=== PATIENT | female | born 1955 | race Caucasian/White ===

== ENCOUNTER 2019-09-14 09:58 | Inpatient (IN) ==
[~2019-09-14 09:58] MED LIST: Bacitracin 50,000 UNIT, Polymyxin B Sulfate 500,000 UNIT, Sodium Chloride IRRigation 1,... IR ONE
[2019-09-14] MEDS ORDERED: CeFAZolin Syr 2,000MG/20 ML 2,000 MG/20 ML SYRINGE IVPB ONE (10:17)
[2019-09-14] MEDS ORDERED: *HR* Midazolam HCl 2 MG/2 ML VIAL ONE (10:26)
[2019-09-14] MEDS ORDERED: Dexamethasone 4 MG/ML VIAL ONE (10:27)
[2019-09-14] MEDS ORDERED: Neostigmine Methylsulfate 3 MG/3 ML SYRINGE ONE (10:27)
[2019-09-14] MEDS ORDERED: Lidocaine -MPF 2% 2 ML VIAL ONE (10:27)
[2019-09-14] MEDS ORDERED: *HR* Propofol 200 MG/20 ML VIAL IVP ONE (10:27)
[2019-09-14] MEDS ORDERED: *HR* Rocuronium Bromide 50 MG/5 ML VIAL ONE (10:27)
[2019-09-14] MEDS ORDERED: Ondansetron 4 MG/2 ML VIAL ONE (10:27)
[2019-09-14] MEDS ORDERED: Lidocaine HCL 4 ML Topical Solution (Laryng-O-Jet Kit Sterile Pak) TP ONE (10:28)
[2019-09-14] MEDS ORDERED: Ringers Solution, Lactated 1,000 ML IVC SCH ×2 (10:30→17:38)
[2019-09-14] MEDS ORDERED: *HR* Remifentanil 1 MG VIAL IVP ONE ×3 (10:38→12:48)
[2019-09-14] MEDS ORDERED: *HR* HYDROmorphone (PF) 1 MG/ML SYRINGE IVP PRN (10:55)
[2019-09-14] MEDS ORDERED: *HR* Promethazine 25 MG/ML VIAL IVP PRN (10:55)
[2019-09-14] MEDS ORDERED: *HR* OxyCODONE Immed Rel 5 MG TABLET PO PRN ×2 (10:55→17:38)
[2019-09-14] MEDS ORDERED: Ondansetron 4 MG/2 ML VIAL IVP ONE (10:55)
[2019-09-14] MEDS ORDERED: Acetaminophen IV 1,000 MG/100 ML INFUS..BTL IVPB ONE (10:55)
[2019-09-14] MEDS ORDERED: Famotidine 20 MG/2 ML VIAL IVP ONE (10:55)
[2019-09-14] MEDS ORDERED: Gabapentin 300 MG CAPSULE PO ONE (10:55)
[2019-09-14] MEDS ORDERED: *HR* Labetalol 20 MG/4 ML SYRINGE IVP PRN (10:55)
[2019-09-14] MEDS ORDERED: Albuterol 2.5 MG/3 ML NEBULIZER IH PRN (10:55)
[2019-09-14] MEDS ORDERED: EPHEDrine 50 MG/ML VIAL ONE (13:05)
[2019-09-14] MEDS ORDERED: *HR* PHENYLEPHRINE 1,000 MCG/10 ML SYRINGE IVP ONE (13:23)
[2019-09-14] MEDS ORDERED: *HR* HYDROMORPHONE 2 MG/ML VIAL ONE (16:39)
[2019-09-14] MEDS ORDERED: Ondansetron 4 MG/2 ML VIAL IVP PRN (17:38)
[2019-09-14] MEDS ORDERED: NON-FORMULARY MEDICATION 1 EACH EACH (Acetaminophen [Tylenol 8 Hour] 650 MG) PO PRN (17:38)
[2019-09-14] MEDS ORDERED: Naloxone 0.4 MG/ML INJ IVP PRN (17:38)
[2019-09-14] MEDS: Melatonin 3 MG TABLET PO SCH (21:21)
[2019-09-14] MEDS: *HR* HYDROcodone/Acet 5/325 mg TABLET PO PRN (21:21)
[2019-09-15] MEDS: Lisinopril 20 MG TABLET PO SCH (09:04)
[2019-09-15] MEDS: hydroCHLOROthiazide 25 MG TABLET PO SCH (09:05)
[2019-09-15] MEDS: Diltiazem CD (24hr) 120 MG CAPSULE PO SCH (09:06)
[2019-09-15] MEDS: Acetaminophen 325 MG TABLET PO PRN (13:03)
[2019-09-15] MEDS: *HR* HYDROcodone/Acet 5/325 mg TABLET PO PRN (20:02)
[2019-09-15] MEDS: Melatonin 3 MG TABLET PO SCH (20:02)
[2019-09-16] MEDS: *HR* HYDROcodone/Acet 5/325 mg TABLET PO PRN ×3 (04:22→20:58)
[2019-09-16] MEDS: hydroCHLOROthiazide 25 MG TABLET PO SCH (07:34)
[2019-09-16] MEDS: Lisinopril 20 MG TABLET PO SCH (07:34)
[2019-09-16] MEDS: Diltiazem CD (24hr) 120 MG CAPSULE PO SCH (07:34)
[2019-09-16] MEDS: Acetaminophen 325 MG TABLET PO PRN (17:18)
[2019-09-16] MEDS: Melatonin 3 MG TABLET PO SCH (20:23)
[2019-09-17] MEDS: Lisinopril 20 MG TABLET PO SCH (07:52)
[2019-09-17] MEDS: hydroCHLOROthiazide 25 MG TABLET PO SCH (07:52)
[2019-09-17] MEDS: Diltiazem CD (24hr) 120 MG CAPSULE PO SCH (07:54)
[2019-09-17] MEDS: *HR* HYDROcodone/Acet 5/325 mg TABLET PO PRN (07:57)
[2019-09-17 10:49] VITALS: BP 120/77
== END 2019-09-17 12:22 | disposition home health service (06) | DRG 454 ==
LOC: SAMDAY 09:58 → 3NENU 17:33
PROVIDERS: ADMIT Orthopaedic Surgery Orthopaedic Surgery of the Spine; ATTEND Orthopaedic Surgery Orthopaedic Surgery of the Spine